=== PATIENT | male | born 1995 | race Caucasian/White ===

== ENCOUNTER 2018-02-19 22:05 | Emergency (ER) | payer MEDICAID ==
[~2018-02-19] VITALS: Ht 188 cm; Wt 109.1 kg
[~2018-02-19 22:05] MED LIST: DIPH25CA83 PO; FAMO20TA44 PO; NO HOME MEDS; OMEP20CA10 PO; SUCR1ORA2 PO
[2018-02-19 22:17] VITALS: BP 138/99
[2018-02-19] MEDS ORDERED: NAPR-56 PO (23:09)
[2018-02-19] MEDS ORDERED: HYDR-4383 PO (23:09)
[2018-02-19] MEDS ORDERED: ketorolac trometh inj. 60 MG/2 ML VIAL IM ONE (23:10)
[2018-02-19] MEDS ORDERED: HYDROcodone/acetaminophen 5mg/325mg tablet PO ONE (23:10)
== END 2018-02-19 23:40 | disposition home or self-care (01) ==
LOC: ER 22:05
DX: K08.89 Other specified disorders of teeth and supporting structures (principal); E11.9 Type 2 diabetes mellitus without complications; Z79.899 Other long term (current) drug therapy
CPT/HCPCS: 96372; 99283; J1885

== ENCOUNTER 2018-02-21 22:27 | Emergency (ER) | payer MEDICAID ==
[~2018-02-21] VITALS: Ht 188 cm; Wt 109.9 kg
[~2018-02-21 22:27] MED LIST changes: +HYDR-4383 PO; +NAPR-56 PO
[2018-02-21 22:32] VITALS: BP 139/90
[2018-02-21] MEDS ORDERED: HYDR-3965 PO (22:41)
[2018-02-21] MEDS ORDERED: AMOX500C2 PO (22:41)
== END 2018-02-21 22:48 | disposition home or self-care (01) ==
LOC: ER 22:27
DX: K02.9 Dental caries, unspecified (principal); E11.9 Type 2 diabetes mellitus without complications; Z88.6 Allergy status to analgesic agent
CPT/HCPCS: 99283